=== PATIENT | male | born 1980 | race Caucasian/White ===

== ENCOUNTER 2016-07-25 08:19 | Day surgery (SDC) | payer BC ==
[~2016-07-25 08:19] MED LIST: ACETAMINOPHEN 1,000 MG/100 ML VIAL IV SCH; FAMOTIDINE IN SALINE, ISO-OSM 20 MG/50 ML PIGGYBACK IV SCH; LACTATED RINGERS 1,000 ML IV SCH; LIDOCAINE HCL 1% 20 ML VIAL SUBCUT ONE; MIDAZOLAM HCL 2 MG/2 ML SYR IV ONE; ceFAZolin 1 GM in NORMAL SALINE MINI-BAG+ 100 ML IV ONE
[2016-07-25] MEDS ORDERED: MIDAZOLAM HCL 2 MG/2 ML SYR IV ONE (08:30)
[2016-07-25] MEDS ORDERED: ceFAZolin 1 GM in NORMAL SALINE MINI-BAG+ 100 ML IV ONE (08:30)
[2016-07-25] MEDS ORDERED: FAMOTIDINE IN SALINE, ISO-OSM 20 MG/50 ML PIGGYBACK IV SCH ×2 (08:30→10:29)
[2016-07-25] MEDS ORDERED: LIDOCAINE HCL 1% 20 ML VIAL SUBCUT ONE ×2 (08:30→10:29)
[2016-07-25] MEDS ORDERED: LACTATED RINGERS 1,000 ML IV SCH ×3 (08:30→11:00)
[2016-07-25] MEDS ORDERED: ACETAMINOPHEN 1,000 MG/100 ML VIAL IV SCH ×2 (08:30→10:29)
[2016-07-25] MEDS ORDERED: MIDAZOLAM HCL 2 MG/2 ML VIAL ONE (08:46)
[2016-07-25] MEDS ORDERED: ceFAZolin 1 GM/10 ML VIAL ONE (08:47)
[2016-07-25] MEDS ORDERED: KETOROLAC TROMETHAMINE 30 MG/ML VIAL ONE (09:20)
[2016-07-25] MEDS ORDERED: ONDANSETRON HCL 4 MG/2 ML VIAL ONE (09:20)
[2016-07-25] MEDS ORDERED: FENTANYL 100 MCG/2 ML VIAL ONE (09:21)
[2016-07-25] MEDS ORDERED: DEXAMETHASONE 4 MG/ML VIAL ONE (09:21)
[2016-07-25] MEDS ORDERED: MORPHINE SULFATE 10 MG/ML SYR IV PRN (10:29)
[2016-07-25] MEDS ORDERED: ONDANSETRON HCL 4 MG/2 ML VIAL IV PRN (10:29)
[2016-07-25] MEDS ORDERED: HYDROmorphone HCL 1 MG/ML SYR IV PRN (10:29)
[2016-07-25] MEDS ORDERED: FENTANYL 100 MCG/2 ML VIAL IV PRN (10:29)
[2016-07-25] MEDS ORDERED: ATROPINE SULFATE 1 MG/10 ML SYR ONE (10:48)
[2016-07-25 11:07] VITALS: TEMP 97.5
[2016-07-25] MEDS ORDERED: BUPIVACAINE/EPI 0.25% 1 VIAL VIAL ONE (11:33)
[2016-07-25 11:58] VITALS: BP 125/82; PULSE 60; RESP 12; O2SAT 95
--- NOTE | 2016-07-25 15:50 | OPERATIVE REPORT ---
DATE OF SURGERY: 07/25/16 SURGEON: Aurelio Hernandez DO ANESTHESIA: General. PREOPERATIVE DIAGNOSIS: Left knee medial meniscal tear, bucket handle. POSTOPERATIVE DIAGNOSIS: Left knee medial meniscal tear, bucket handle with an anterior cruciate ligament tear demonstrated by an empty wall sign. OPERATION PERFORMED: Left knee partial meniscectomy for arthroscopy. ESTIMATED BLOOD LOSS: Minimal. COMPLICATIONS: None. TOTAL TOURNIQUET TIME: 66 minutes. PROCEDURE NOTE: The patient was brought to the operating room suite and after administration of general anesthesia the left lower extremity was prepped and draped in a sterile fashion. The anterior medial and anterior lateral portals were created after first injecting with 0.25% bupivacaine with epinephrine. The anterior lateral portal was created first and the anterior medial portal was created under direct visualization after first inserting a spinal needle. The patient's bucket handle medial meniscal tear was immediately visualized. There was a significant amount of tearing and fraying of the displaced bucket handle portion. I was able to reduce the bucket handle back over the condyle; however, it was out in the white zone of the meniscus which would be an irrepairable section and furthermore, there was significant damage to the meniscal tissue with complex tearing. The old sutures from the patient's previous repair were still in place, indicating that the new tear had propagated along a new plane and that the old repair was successful and was intact. A series of arthroscopic instruments were utilizing including kailey and biters to remove the bucket handle tear and to saucerized the meniscus down to a smooth margin. Diagnostic arthroscopy did reveal an empty wall sign of the anterior cruciate ligament which still had some fibers attached to the original attachment site, but they had a significant amount of laxity to them and they were in a serpentine configuration lying in the joint. The anterior cruciate ligament was lying flat across the top of the tibial plateau and appeared to be scarred down to the posterior capsular tissues. The quality of the anterior cruciate ligament actual fibers were good, but again there was no attachment to the femoral condyle with an empty wall sign or an empty anterior cruciate ligament footprint. The lateral compartment of the knee was without any meniscal tears or chondromalacia. 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 The knee was drained of all arthroscopic fluid and the arthroscopic portals were closed utilizing simple interrupted 3-0 nylon suture. The dressing was applied to the incision sites which was bacitracin ointment, Xeroform, 4x4s, ABDs, cast padding, and an Jose bandage. The patient was transferred from the operating room suite to the recovery room in stable condition. LIANA
--- NOTE | 2016-07-27 12:36 | PREOPERATIVE H&P ---
History of Present Illness (Aurelio Hernandez DO; 07/20/2016 2:51 PM) The patient is a 36 year old male. Note:Patient presents complaining of left knee pain. The pain began 3 days ago while he was climbing and [place]. He was performing a 1 legged squat on his big toe and felt a sudden pop and shift in his knee. He has had some swelling and difficulty with full extension and flexion. Has a history of a left medial meniscus repair 3 years ago. Problem List/Past Medical (Aurelio Hernandez DO; 07/20/2016 2:51 PM) Head injury, closed (S09.90XA) Allergies (Mey Bryan RN; 07/20/2016 2:27 PM) No Known Drug Allergies Family History (Mey Bryan RN; 07/20/2016 2:27 PM) Mother 50's; Pancreatic Ca Father @ 70; Esophageal Ca Social History (Mey Bryan RN; 07/20/2016 2:27 PM) Number of Children none Tobacco use Never smoker. Marital status Occupation [employer] Alcohol use Does not drink alcohol. Medication History (Mey Bryan RN; 07/20/2016 2:27 PM) Ibuprofen (200MG Capsule, 2-3 tabs Oral every six hours, as needed) Active. 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 Acute medial meniscal tear (836.0) (S83.249A) Acute meniscal tear of knee (836.2) (S83.209A) Shoulder pain, right (M25.511) s/p fall 3 days ago, onse of right shoulder pain. Internal derangement of knee (717.9) (M23.90) Review of Systems (Aurelio Hernandez DO; 07/20/2016 2:51 PM) General Not Present- Chills and Fever. Skin Not Present- Erythema, Skin Color Changes and Skin Problems. HEENT Not Present- Sleep Apnea. Neck Not Present- Neck Pain. Respiratory Not Present- Cough and Shortness of Breath. Cardiovascular Not Present- Chest Pain, Difficulty Breathing On Exertion, Fainting and Leg Pain and/or Swelling. Gastrointestinal Not Present- Abdominal Pain, Nausea and Vomiting. Male Genitourinary Not Present- Painful Urination and Urethral Discharge. Musculoskeletal Not Present- Decreased Range of Motion, Joint Pain, Joint Stiffness, Joint Swelling, Muscle Pain and Muscle Weakness. Neurological Not Present- Dizziness, Focal Neurological Symptoms, Numbness in extremities, Trouble walking and Weakness. Psychiatric Not Present- Anorexia, Anxiety and Depression. Endocrine Not Present- Weight Loss. Hematology Not Present- Bleeding Problems, DVT and Easy Bruising. Vitals (Mey Bryan RN; 07/20/2016 2:27 PM) 07/20/2016 2:26 PM Weight: 174.7 lb Height: 70in Body Surface Area: 1.97 m Body Mass Index: 25.07 kg/m Temp.: 98.1F Pulse: 60 (Regular) Resp.: 16 (Unlabored) BP: 108/78 (Sitting, Left Arm, Standard) Physical Exam (Aurelio Hernandez DO: 07/25/2016 9:28PM) Physical examination of the LEFT knee demonstrates no skin defects with normal appearance, color and temperature. There is a grade 2 effusion. There is no swelling or edema. GEN: Alert OX3 HEENT: PERRLA EOM CHEST: CTA B/L without W/R/R. HEART: RRR S1S2 ABD: SOFT Nontender/nondistended The peripheral neurovascular status is intact with normal sensation and adequate perfusion. Patella grind is negative with no crepitance. Both flexion and extension are +5/5 for strength. Range of motion is from 10 of extension to 90 of flexion with no pain at full flexion. There is no crepitance with range of motion. There is no medial or lateral instability or laxity with varus and valgus moment at both 0 of extension and 30 of flexion. There is no anterior or posterior instability or laxity with a negative Saleem's, negative anterior drawer and negative posterior drawer. There is no tenderness to palpation over the inferior pole of the patella, the tibial tubercle or the patella tendon. There is significant MEDIAL joint line tenderness to palpation. Assessment & Plan (Aurelio Hernandez DO; 07/20/2016 2:55 PM) Acute meniscal tear of left knee, initial encounter (S83.207A) Impression: The patient likely has retorn his meniscus in the same location as his previous tear. A repair was performed 3 years ago and the patient has had good function since then as he has returned to rock climbing, however the repair was not completely in the red zone of the meniscus but was in the pink zone which may have resulted in incomplete healing. An MRI will be obtained of the pathology. Signed by Aurelio Hernandez DO (07/20/2016 2:55 PM) LIANA
== END 2016-07-25 12:05 | disposition home or self-care (01) ==
LOC: SDS 08:19
PROVIDERS: ATTEND Orthopaedic Surgery
DX: S83.212A Bucket-handle tear of medial meniscus, current injury, left knee, initial encounter (principal); X50.0XXA Overexertion from strenuous movement or load, initial encounter
CPT/HCPCS: J0461; J0690; J1885; J2250; J2405